=== PATIENT | female | born 1950 | race Caucasian/White ===

== ENCOUNTER → 2022-08-13 15:13 | Outpatient (BNVA) | payer OTHER, SELFPAY | PROVIDERS: PCP Family Medicine; Visit Provider Internal Medicine Rheumatology | DX: Z13.89 Encounter for screening for other disorder (principal) ==

== ENCOUNTER 2022-08-20 09:43 | Outpatient (REF) | payer OTHER, SELFPAY ==
[2022-08-20 10:40] LABS: MANUAL DIFF FLAG NO
[2022-08-20 10:42] LABS: Basophils Percent Auto 0.7 % (0-2); Eosinophils Absolute Auto 0.2 X10*3/uL (0.0-0.4); Eosinophils Percent Auto 3.7 % (0-4); Hematocrit 40.1 % (37.0-47.0); Hemoglobin 13.1 g/dl (12.0-16.0); Imm Gran Abs Auto 0.01 X10*3/uL (0.00-0.03); Imm Gran Pct Auto 0.2 % (0.0-0.4); Lymphocytes Absolute Auto 1.3 X10*3/uL (1.2-4.9); Lymphocytes Percent Auto 21.2 % (20-40); Mean Corpuscular HGB Conc 32.7 g/dl (31.0-35.0); Mean Corpuscular Hemoglobin 29.9 pg (27.0-33.0); Mean Corpuscular Volume 91.6 fL (80.0-98.0); Monocytes Absolute Auto 0.5 X10*3/uL (0.1-1.2); Monocytes Percent Auto 8.9 % (2-11); Neutrophils Absolute Auto 3.9 x10*3/uL (2.0-8.3); Neutrophils Percent Auto 65.3 % (45-73); Platelet Count 199 X10*3/uL (160-400); Red Blood Count 4.38 X10*6/uL (4.20-5.50); Red Cell Distribution Width 14.6 % (11.0-16.0); White Blood Count 5.9 X10*3/uL (4.8-10.8)
[2022-08-20 11:41] LABS: Erythrocyte Sedimentation Rate 5 MM/HR (0-20)
[2022-08-20 11:44] LABS: Creatinine Urine 112.75 mg/dL; Protein/Creatinine Ratio, Ur 0.11 (<0.2); Total Protein Urine Random 12 mg/dL (<12)
[2022-08-20 12:06] LABS: C Reactive Protein < 0.10 mg/dL (< or = 0.50); Rheumatoid Factor < 13.0 IU/mL (<15.0)
[2022-08-22 14:03] LABS: Anti DNA DS Antibody 2 IU/mL; SM/Ribonucleoprotein Ab <1.0 NEG AI (<1.0 NEG); Smith Protein <1.0 NEG AI (<1.0 NEG)
[2022-08-24 11:29] LABS: Cyclic Citrullinated Peptide <16 UNITS
== END 2022-08-20 09:44 | disposition home or self-care (01) ==
LOC: HO.10HDL 09:43
PROVIDERS: Visit Provider Internal Medicine Rheumatology
DX: I31.39 Other pericardial effusion (noninflammatory) (principal); R76.8 Other specified abnormal immunological findings in serum
CPT/HCPCS: 36415; 84156; 85025; 85652; 86140; 86200; 86225; 86235; 86431